=== PATIENT | female | born 1955 | race Caucasian/White ===

== ENCOUNTER → 2017-03-06 | Outpatient (CLI) | payer OTHER ==
[~2017-03-06] MED LIST: ALPRAZOLAM PO; BACTRIM DS TABL1 TA1 PO; BENTYL20 M1 PO; CELEXA PO; CIPRO PO; CLARITIN10 MG PO; DEPAKOTE PO; DEXAMETHASONE4 MG PO; FLEXERIL10 MG PO; HCTZ PO; HYDROCODONE-APA1 T30 PO; KETOPROFEN PO; LIPITOR PO; LISINOPRIL PO; NEURONTIN600 MG PO; NORCO1 TAB 10/3 PO; ROBAXIN; ROBAXIN PO; TRICOR PO; VICODIN 5/500 T1 TAB PO; ZANAFLEX4 M1 PO; ZOFRAN ODT4 MG PO
--- NOTE | ~2017-03-06 | CR20 ---
[facility]. [facility] A Service of [facility] & [facility] RADIOLOGY TEXT RESULTS PATIENT: JOSE REZA LOCATION: [facility] : 59 UNIT #: [id number] AGE: [address]: Martin Posada MD SEX: F ORDER DR: [id number] [place] [id number] O MR#: [id number] Acc #: [id number] NAME: JOSE REZA : 1955 SEX: F STUDY DATE/TIME: 03/06/2017 9:05 UNIT: SRAD ROOM: STUDY DESCRIPTION: CR Ankle Min 3 Views Lt Attending Physician: Martin Posada M.D. Referring Physician: Martin Posada M.D. Ordering Physician: Martin Posada M.D. Primary Care Physician: Martin Posada M.D. MEDICAL IMAGING REPORT This report is preliminary unless electronic signature is present. EXAM Left ankle, 03/06/2017 HISTORY Left ankle pain status post fall 03/01/2017 COMPARISON Left foot same date. FINDINGS 3 views of the left ankle demonstrate no acute fracture or dislocation. Ankle mortise symmetric. Talar dome intact. No ankle effusion. Soft tissues are unremarkable. IMPRESSION Unremarkable left ankle. Dictated by... Satish Bowman M.D. THIS IS AN ELECTRONICALLY VERIFIED REPORT Satish Bowman M.D. at 03/07/2017 4:10 PM RADHA/zak TD: 03/07/2017 00:23 JOB #: [id number] MEDICAL IMAGING REPORT Page 1 of 1
--- NOTE | ~2017-03-06 | CR126 ---
[facility]. [facility] A Service of [facility] & [facility] RADIOLOGY TEXT RESULTS PATIENT: JOSE REZA LOCATION: [facility] : 59 UNIT #: [id number] AGE: [address]: Martin Posada MD SEX: F ORDER DR: [id number] [place] [id number] MR#: [id number] Acc #: [id number] NAME: JOSE REZA : 1955 SEX: F STUDY DATE/TIME: 03/06/2017 9:05 UNIT: SRAD ROOM: STUDY DESCRIPTION: CR Foot Complete Min 3 View Lt Attending Physician: Martin Posada M.D. Referring Physician: Martin Posada M.D. Ordering Physician: Martin Posada M.D. Primary Care Physician: Martin Posada M.D. MEDICAL IMAGING REPORT This report is preliminary unless electronic signature is present. EXAM Left foot 03/06/2017 HISTORY Left foot pain status post fall 03/01/2017 COMPARISON Left foot 06/20/2016 FINDINGS 3 views of the left foot demonstrate no acute fracture or dislocation. Joint spaces are maintained. Soft tissues are unremarkable. IMPRESSION Unremarkable left foot. Dictated by... Satish Bowman M.D. THIS IS AN ELECTRONICALLY VERIFIED REPORT Satish Bowman M.D. at 03/07/2017 4:10 PM RADHA/ana laura TD: 03/07/2017 00:23 JOB #: [id number] MEDICAL IMAGING REPORT Page 1 of 1
--- NOTE | ~2017-03-06 | CR252 ---
[facility]. [facility] A Service of [facility] RADIOLOGY TEXT RESULTS PATIENT: JOSE REZA LOCATION: [facility] : 59 UNIT #: [id number] AGE: [address]: Martin Posada MD SEX: F ORDER DR: [id number] [place] [id number] O MR#: [id number] Acc #: [id number] NAME: JOSE REZA : 1955 SEX: F STUDY DATE/TIME: 03/06/2017 9:05 UNIT: SRAD ROOM: STUDY DESCRIPTION: CR Tibia and Fibula 2 Views Lt Attending Physician: Martin Posada M.D. Referring Physician: Martin Posada M.D. Ordering Physician: Martin Posada M.D. Primary Care Physician: Martin Posada M.D. MEDICAL IMAGING REPORT This report is preliminary unless electronic signature is present. EXAM Left leg 03/06/2017 HISTORY Left leg pain status post fall 03/01/2017 COMPARISON Left ankle same date FINDINGS 3 views of the left leg demonstrate no acute fracture or dislocation. Soft tissues are unremarkable. IMPRESSION Unremarkable left leg. Dictated by... Satish Bowman M.D. THIS IS AN ELECTRONICALLY VERIFIED REPORT Satish Bowman M.D. at 03/07/2017 4:10 PM RADHA/ana laura TD: 03/07/2017 00:17 JOB #: [id number] MEDICAL IMAGING REPORT Page 1 of 1
== END | disposition home or self-care (01) ==
LOC: SRAD 08:50
DX: M79.662 Pain in left lower leg (principal)
CPT/HCPCS: 73590; 73610; 73630

== ENCOUNTER 2017-07-05 00:14 | Emergency (ER) | payer OTHER ==
[~2017-07-05] VITALS: Ht 157.5 cm; Wt 74.8 kg
[~2017-07-05 00:14] MED LIST changes: -NEURONTIN600 MG PO
[2017-07-05] MEDS ORDERED: NEURONTIN600 MG PO (00:22)
== END 2017-07-05 01:05 | disposition home or self-care (01) ==
LOC: SED 00:14
DX: S70.362A Insect bite (nonvenomous), left thigh, initial encounter (principal); M54.5 Low back pain; J44.9 Chronic obstructive pulmonary disease, unspecified; F31.9 Bipolar disorder, unspecified; Z90.710 Acquired absence of both cervix and uterus; Z87.891 Personal history of nicotine dependence; Z79.899 Other long term (current) drug therapy; W57.XXXA Bitten or stung by nonvenomous insect and other nonvenomous arthropods, initial encounter
CPT/HCPCS: 99282